=== PATIENT | male | born 1960 | race Caucasian/White ===

== ENCOUNTER 2016-12-08 06:09 | Day surgery (SDC) | payer MEDICAID ==
[~2016-12-08] VITALS: Ht 175.3 cm; Wt 79.6 kg
[~2016-12-08 06:09] MED LIST: SODIUM CHLORIDE 0.9% 1,000 ML IV ONE
[2016-12-08] MEDS ORDERED: MULT-1203 PO (06:56)
[2016-12-08] MEDS ORDERED: ALBU8.5H8 IH (07:00)
[2016-12-08] MEDS ORDERED: BUSP10TA23 PO (07:00)
[2016-12-08] MEDS ORDERED: RANI150T7 PO (07:00)
[2016-12-08] MEDS ORDERED: ATOR20TA86 PO (07:00)
[2016-12-08] MEDS ORDERED: BUDE10.2 IH (07:00)
[2016-12-08] MEDS ORDERED: MONT10TA21 PO (07:00)
[2016-12-08] MEDS ORDERED: ASPI-1182 PO (07:00)
[2016-12-08] MEDS ORDERED: VARE1TAB22 PO (07:00)
[2016-12-08] MEDS ORDERED: TAMS0.4C32 PO (07:00)
[2016-12-08] MEDS ORDERED: GABA-531 PO (07:00)
[2016-12-08] MEDS ORDERED: FentaNYL CITRATE-PF 100 MCG/2 ML VIAL ONE (07:29)
[2016-12-08] MEDS ORDERED: MIDAZOLAM HCL 2 MG/2 ML VIAL ONE (07:29)
[2016-12-08] MEDS ORDERED: ALBUTEROL SULFATE 2.5 MG/0.5 ML NEB SOLUTION NEB ONE ×2 (08:34→21:16)
[2016-12-08] MEDS ORDERED: MethylPREDNISolone SOD SUCC 125 MG/2 ML VIAL IVP ONE (08:45)
[2016-12-08] MEDS ORDERED: MethylPREDNISolone SOD SUCC 125 MG/2 ML VIAL ONE (08:50)
[2016-12-08] MEDS ORDERED: OXYGEN THERAPY IH SCH (20:00)
[2016-12-08] MEDS ORDERED: LIDOCAINE HCL 2% 30 ML JELLY ONE (21:16)
[2016-12-08] MEDS ORDERED: BENZOCAINE 20% 50 MCG/SPRAY 57 GM ONE (21:16)
[2016-12-08] MEDS ORDERED: LIDOCAINE HCL 4% 50 ML SOLUTION ONE (21:16)
== END 2016-12-08 09:55 | disposition home or self-care (01) ==
LOC: SURGERY 06:09
PROVIDERS: ATTEND Internal Medicine Critical Care Medicine
DX: J38.4 Edema of larynx (principal); B37.0 Candidal stomatitis; R91.1 Solitary pulmonary nodule; K21.9 Gastro-esophageal reflux disease without esophagitis; I10 Essential (primary) hypertension; E78.5 Hyperlipidemia, unspecified; Z79.82 Long term (current) use of aspirin; Z79.01 Long term (current) use of anticoagulants; Z87.891 Personal history of nicotine dependence; Z98.890 Other specified postprocedural states
CPT/HCPCS: 31623; 31624; 71010; 87015 ×2; 87070; 87101; 87147; 87205; 87220; 88108; J2250; J2930; J3010; J7030

== ENCOUNTER 2020-09-26 06:39 | Day surgery (SDC) | payer MEDICARE, MEDICAID ==
[~2020-09-26] VITALS: Ht 172.7 cm; Wt 89.0 kg
[~2020-09-26 06:39] MED LIST changes: +ALBU8.5H8 IH; +ASPI-1444 PO; +ATOR20TA86 PO; +BUDE10.2 IH; +BUSP10TA23 PO; +GABA-1181 PO; +MONT-35 PO; +MULT-1203 PO; +RANI150T7 PO; -SODIUM CHLORIDE 0.9% 1,000 ML IV ONE; +TAMS-13 PO; +VARE1TAB22 PO
[2020-09-26] MEDS ORDERED: BENZOCAINE 20% 50 MCG/SPRAY 57 GM TP ONE (06:40)
[2020-09-26] MEDS ORDERED: LIDOCAINE 2% 30 ML JELLY TP ONE (06:40)
[2020-09-26] MEDS ORDERED: ALBUTEROL SULFATE 2.5 MG/0.5 ML NEB SOLUTION NEB ONE (06:40)
[2020-09-26] MEDS ORDERED: SODIUM CHLORIDE 0.9% 1,000 ML ONE (06:59)
[2020-09-26] MEDS ORDERED: FentaNYL CITRATE PF 100 MCG/2 ML VIAL ONE (07:38)
[2020-09-26] MEDS ORDERED: MIDAZOLAM HCL 5 MG/ML VIAL ONE (07:38)
[2020-09-26 07:42] LABS: COVID AG,FIA SOURCE NASOPHARYNGEAL
[2020-09-26] MEDS ORDERED: SODIUM CHLORIDE 0.9% 1,000 ML IV ONE (08:15)
[2020-09-26] MEDS ORDERED: ATOR40TA71 PO (08:17)
[2020-09-26] MEDS ORDERED: METO-391 PO (08:17)
[2020-09-26] MEDS ORDERED: BUPR150T8 PO (08:17)
[2020-09-26] MEDS ORDERED: FLUT16H NASAL (08:17)
[2020-09-26] MEDS ORDERED: FLUT1BLS13 IH (08:17)
[2020-09-26] MEDS ORDERED: SUCR1TAB PO (08:17)
[2020-09-26] MEDS ORDERED: GABA-1181 PO (08:18)
[2020-09-26] MEDS ORDERED: MethylPREDNISolone SOD SUCC 125 MG/2 ML VIAL IVP ONE (09:00)
[2020-09-26] MEDS ORDERED: MethylPREDNISolone SOD SUCC 125 MG/2 ML VIAL ONE (09:49)
[2020-09-26] MEDS ORDERED: OXYGEN THERAPY IH SCH (20:00)
== END 2020-09-26 11:05 | disposition home or self-care (01) ==
LOC: SURGERY 06:39
PROVIDERS: ATTEND Internal Medicine Critical Care Medicine
DX: J38.4 Edema of larynx (principal); B37.0 Candidal stomatitis; Z98.890 Other specified postprocedural states; Z79.899 Other long term (current) drug therapy
CPT/HCPCS: 31623; 31624; 71045; 87015; 87070; 87101; 87205; 87206; 87220; 87426; 88108; 88184; 88185; 88312; C9803; J2250; J2930; J3010; J7030; J7613

== ENCOUNTER 2021-09-23 06:35 | Day surgery (SDC) | payer MEDICARE, MEDICAID ==
[2021-09-22 08:03] LABS: COVID AG,FIA SOURCE NASOPHARYNGEAL
[~2021-09-23] VITALS: Ht 174 cm; Wt 86.3 kg
[~2021-09-23 06:35] MED LIST changes: -ALBU8.5H8 IH; -ATOR20TA86 PO; +ATOR40TA71 PO; -BUDE10.2 IH; +BUPR-113 PO; -BUSP10TA23 PO; +FLUT16H NASAL; +FLUT1BLS13 IH; +METO-391 PO; -MULT-1203 PO; -RANI150T7 PO; +SUCR1TAB PO; -VARE1TAB22 PO
[2021-09-23] MEDS ORDERED: PROPOFOL 1% 20 ML VIAL IVP ONE (06:36)
[2021-09-23] MEDS ORDERED: RINGERS SOLUTION,LACTATED 500 ML IV ONE (07:00)
[2021-09-23] MEDS ORDERED: SODIUM CHLORIDE 0.9% 1,000 ML ONE (07:14)
[2021-09-23] MEDS: SODIUM CHLORIDE 0.9% 1,000 ML IV ONE (09:16)
[2021-09-23] MEDS ORDERED: OXYGEN THERAPY IH SCH (20:00)
== END 2021-09-23 10:50 | disposition home or self-care (01) ==
LOC: SURGERY 06:35
PROVIDERS: ATTEND Specialist
DX: Z09 Encounter for follow-up examination after completed treatment for conditions other than malignant neoplasm (principal); K63.5 Polyp of colon; I25.2 Old myocardial infarction; K57.30 Diverticulosis of large intestine without perforation or abscess without bleeding; F17.210 Nicotine dependence, cigarettes, uncomplicated; Z95.5 Presence of coronary angioplasty implant and graft; Z98.890 Other specified postprocedural states; Z79.899 Other long term (current) drug therapy; Z86.73 Personal history of transient ischemic attack (TIA), and cerebral infarction without residual deficits
CPT/HCPCS: 87426; 45385; 88305; 93005; C9803; C1769; J2704; J7030